=== PATIENT | female | born 1970 | race Caucasian/White ===

== ENCOUNTER 2017-09-15 07:59 | Emergency (ER) | payer MEDICAID, OTHER ==
[2017-09-15] MEDS ORDERED: Ketorolac 60 MG/2 ML SDV IM ONE (08:26)
[2017-09-15] MEDS ORDERED: traMADol 50 MG Tab ONE (08:30)
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
== END 2017-09-15 08:35 | disposition home or self-care (01) ==
LOC: EDBD 07:59 → LB.ED 07:59
DX: S49.92XA Unspecified injury of left shoulder and upper arm, initial encounter (principal); Y04.8XXA Assault by other bodily force, initial encounter
CPT/HCPCS: 96372; 99283; A9270; J1885